=== PATIENT | female | born 1990 | race Caucasian/White ===

== ENCOUNTER 2016-09-29 10:16 | Emergency (ER) | payer OTHER ==
[~2016-09-29] VITALS: Wt 85.3 kg
[~2016-09-29 10:16] MED LIST: AMOXICILLIN500 MG PO; AUGMENTIN 875 M1 TAB PO; CLARITIN10 MG PO; FERROUS SULFAT325 MG PO; HEMOCYTE324 MG PO; HYDROCODONE BIT1 T11 PO; IBUPROFEN 30 M800 MG PO; IBUPROFEN800 MG; IRON FERROUS S325 MG PO; PNV-SELECT1 TAB PO; PRENATAL1 TA3 PO; TRAMADOL HCL50 MG PO; ZITHROMAX Z PA250 MG PO
[2016-09-29] MEDS ORDERED: BIRTH CONTROL PO (10:18)
[2016-09-29] MEDS ORDERED: PREDNISONE20 M1 PO (11:35)
== END 2016-09-29 11:49 | disposition home or self-care (01) ==
LOC: ED 10:16
DX: R42 Dizziness and giddiness (principal); Z79.899 Other long term (current) drug therapy

== ENCOUNTER 2019-12-29 11:06 | Emergency (ER) | payer OTHER ==
[~2019-12-29] VITALS: Wt 90.7 kg
[~2019-12-29 11:06] MED LIST changes: +BIRTH CONTROL PO; +PREDNISONE20 M1 PO
[2019-12-29] MEDS ORDERED: ANTIBIOTIC28.4 GM T (12:02)
[2019-12-29] MEDS ORDERED: CEPHALEXIN500 M1 PO (12:02)
== END 2019-12-29 12:14 | disposition home or self-care (01) ==
LOC: ED 11:06
DX: S61.213A Laceration without foreign body of left middle finger without damage to nail, initial encounter (principal); A37.90 Whooping cough, unspecified species without pneumonia; Z23 Encounter for immunization; Z79.899 Other long term (current) drug therapy; W26.0XXA Contact with knife, initial encounter; Y93.89 Activity, other specified; Y92.89 Other specified places as the place of occurrence of the external cause; Y99.8 Other external cause status

== ENCOUNTER 2020-01-12 10:51 | Emergency (ER) | payer OTHER ==
[~2020-01-12] VITALS: Ht 167.6 cm; Wt 90.7 kg
[~2020-01-12 10:51] MED LIST changes: +ANTIBIOTIC28.4 GM T; +CEPHALEXIN500 M1 PO
== END 2020-01-12 11:28 | disposition home or self-care (01) ==
LOC: ED 10:51
DX: S61.213D Laceration without foreign body of left middle finger without damage to nail, subsequent encounter (principal); Z48.02 Encounter for removal of sutures; Z79.899 Other long term (current) drug therapy; X58.XXXD Exposure to other specified factors, subsequent encounter

== ENCOUNTER 2021-08-12 20:34 | Emergency (ER) | payer OTHER ==
[~2021-08-12] VITALS: Ht 170.1 cm; Wt 90.7 kg
== END 2021-08-12 21:39 | disposition home or self-care (01) ==
LOC: ED 20:34
DX: S61.213A Laceration without foreign body of left middle finger without damage to nail, initial encounter (principal); W26.8XXA Contact with other sharp object(s), not elsewhere classified, initial encounter; Y93.89 Activity, other specified; Y92.89 Other specified places as the place of occurrence of the external cause; Y99.8 Other external cause status

== ENCOUNTER 2024-11-04 21:19 | Emergency (ER) | payer OTHER ==
[~2024-11-04] VITALS: Ht 170.1 cm; Wt 93.0 kg
[2024-11-04] MEDS ORDERED: CEPHALEXIN 500 MG CAP PO ONE (22:00)
[2024-11-04] MEDS ORDERED: CEPHALEXIN500 M1 PO (22:05)
== END 2024-11-04 22:19 | disposition home or self-care (01) ==
LOC: ED 21:19
DX: L23.7 Allergic contact dermatitis due to plants, except food (principal); L03.115 Cellulitis of right lower limb; Z79.899 Other long term (current) drug therapy